=== PATIENT | male | born 1960 | race Caucasian/White ===

== ENCOUNTER → 2018-07-18 | Outpatient (CLI) | payer BC ==
--- NOTE | 2018-07-18 11:44 | CONS ---
CONSULTATION DATE OF SERVICE: 07/18/2018 This 58-year-old gentleman has been evaluated in sleep center for obstructive sleep apnea-hypopnea syndrome. HISTORY OF PRESENT ILLNESS/SLEEP WAKE EVALUATION: The patient was diagnosed with obstructive sleep apnea about 10 years ago in another institution. Since that time, patient is on treatment with CPAP. He does not remember exactly where the sleep study was done and what was the results of the sleep studies. He does not know exactly what the pressure on his CPAP machine. His machine is old and become noisy. The patient's sleep schedule from midnight until 6 a.m. Usually no problems with falling asleep. No TV in bedroom. He sleeps by himself. He wakes up from sleep with a dry mouth and episodes of gasping for air 2 times per night and has 2 episodes of nocturia at night. He possibly change his weight since previous sleep study which was done again 10 years ago and never had been repeated since that time. No history of hypnagogic hallucinations, sleep paralysis or cataplexy. [place] Sleepiness Scale is 5, but in the morning patient wakes up tired, worries about his sleep, has episodes of irritability. PAST MEDICAL HISTORY: Positive for paroxysmal atrial fibrillation and seasonal allergies. PAST SURGICAL HISTORY: Cardiac ablation for atrial fibrillation, tonsillectomy, cholecystectomy, right ankle surgery. MEDICATIONS: Eliquis, Toprol, Amiodarone, Tylenol, trazodone. SOCIAL HISTORY: Negative for smoking. Alcohol consumption rarely. FAMILY HISTORY: Heart problem, arthritis, snoring, acid reflux. REVIEW OF SYSTEMS: Awakenings from sleep, sometimes sleepiness and tiredness during the day. PHYSICAL EXAMINATION: During physical exam, a gentleman without distress. VITAL SIGNS: BP 133/72, HR 56, RR 16, height 5 feet 9 inches, weight 349, body mass index 51.5, temperature 98.5, oxygen saturation at room air 99%. HEENT: PERRLA, EOMI. Oropharynx extremely low position of soft palate. NECK: Wide neck 17-1/2 inches in circumference. LUNGS: Clear to percussion and to auscultation. Good air exchange. No wheezing or rhonchi. HEART: S1, S2 regular. No murmurs, gallops, or rubs. ABDOMEN: Obese. EXTREMITIES: No clubbing or cyanosis. MEDICAL CONSULTANT: Awake, alert, and oriented X3. Cranial nerves 2 to 7 intact. There is no fasciculation or atrophy. noted. No focal deficits observed. IMPRESSION: 1. Obstructive sleep apnea-hypopnea syndrome diagnosed 10 years ago. No information about previous sleep studies. The patient's CPAP unit is noisy, 9-year-old. Low position of soft palate wide neck. Awakenings from sleep while on CPAP. Dry mouth and gasping for air. Obstructive sleep apnea-hypopnea syndrome. 2. Morbid obesity with body mass index 51.5. 3. History of paroxysmal atrial fibrillation, status post cardiac ablation. 4. Seasonal allergies. 5. Status post tonsillectomy. 6. Status post cholecystectomy. 7. Status post right ankle arthroscopic surgery. PLAN: 1. Sleep study for evaluation of patient's breathing during the sleep at the present time. 2. CPAP titration for evaluation of effective CPAP pressure and then to get patient new CPAP or if necessary BiPAP unit. 3. Aggressive losing weight program for sleep hygiene with regular time in bed for at least 8 hours. 4. No driving if feeling any sleepiness. Thank you very much for referring this patient for consultation. Sincerely, Brent Bermudez MD, PhD, FAASM Diplomat of [place] [employer] [employer] [facility] [place] MMODL / [facility]: [id number] /
== END ==
LOC: SLEEP 09:53
PROVIDERS: ATTEND Internal Medicine
DX: G47.33 Obstructive sleep apnea (adult) (pediatric) (principal); E66.01 Morbid (severe) obesity due to excess calories; I48.0 Paroxysmal atrial fibrillation; J30.2 Other seasonal allergic rhinitis; Z90.49 Acquired absence of other specified parts of digestive tract; Z98.890 Other specified postprocedural states; Z90.89 Acquired absence of other organs; Z68.43 Body mass index [BMI] 50.0-59.9, adult; Z86.79 Personal history of other diseases of the circulatory system; Z79.01 Long term (current) use of anticoagulants; Z79.899 Other long term (current) drug therapy; Z99.89 Dependence on other enabling machines and devices
CPT/HCPCS: 99211